=== PATIENT | female | born 1945 | race Hispanic/Latino ===

== ENCOUNTER → 2023-07-08 | Outpatient (CLI) | payer OTHER | END | disposition home or self-care (01) | LOC: RAH 14:16 | PROVIDERS: ATTEND Family Medicine | DX: M16.11 Unilateral primary osteoarthritis, right hip (principal); M25.551 Pain in right hip; M47.816 Spondylosis without myelopathy or radiculopathy, lumbar region | CPT/HCPCS: 72100; 73502 ==

== ENCOUNTER 2023-08-22 13:53 | Emergency (ER) | payer MEDICARE, OTHER ==
[~2023-08-22] VITALS: Ht 157.5 cm; Wt 59.9 kg
[2023-08-22 14:36] VITALS: BP 159/85; PULSE 72; RESP 18
[2023-08-22] MEDS ORDERED: ACETAMINOPHEN 500 MG TABLET ONE (17:45)
[2023-08-22] MEDS ORDERED: MELO5CAP3 PO (17:49)
[2023-08-22] MEDS ORDERED: MELOXICAM 7.5 MG TABLET PO SCH (18:00)
== END 2023-08-22 18:44 | disposition home or self-care (01) ==
LOC: EDH 13:53
DX: M54.31 Sciatica, right side (principal); E78.00 Pure hypercholesterolemia, unspecified; I10 Essential (primary) hypertension

== ENCOUNTER 2023-10-03 05:46 | Day surgery (SDC) | payer MEDICARE ==
[2023-10-03] VITALS (11 sets, daily range): BP systolic 100–162; BP diastolic 53–80; PULSE 54–70; RESP 14–18
[~2023-10-03] VITALS: Ht 157.5 cm; Wt 59.0 kg
[~2023-10-03 05:46] MED LIST: ASCO250T22 PO; CHOL200079 PO; CYAN500T77 PO; FLUT16H NS; LOSA100T59 PO; MELO-108 PO; NITR100C PO; ROSU40TA21 PO
[2023-10-03] MEDS: 0.9%NACL 1000ML 1,000 ML IV ONE (06:48)
[2023-10-03] MEDS ORDERED: PROPOFOL 10 MG/ML 20ML VIAL IV ONE (07:53)
== END 2023-10-03 09:25 | disposition home or self-care (01) ==
LOC: ENDO 05:46 → DAH 05:46 → ENDO 09:25
PROVIDERS: ATTEND Internal Medicine Gastroenterology
DX: R68.81 Early satiety (principal); K44.9 Diaphragmatic hernia without obstruction or gangrene; K29.50 Unspecified chronic gastritis without bleeding; R12 Heartburn; R14.0 Abdominal distension (gaseous); K57.30 Diverticulosis of large intestine without perforation or abscess without bleeding; K59.00 Constipation, unspecified; K64.0 First degree hemorrhoids; I10 Essential (primary) hypertension; M19.90 Unspecified osteoarthritis, unspecified site; E78.00 Pure hypercholesterolemia, unspecified; M81.0 Age-related osteoporosis without current pathological fracture; Z86.73 Personal history of transient ischemic attack (TIA), and cerebral infarction without residual deficits; Z90.49 Acquired absence of other specified parts of digestive tract; Z90.710 Acquired absence of both cervix and uterus; Z86.010 Personal history of colon polyps; Z79.899 Other long term (current) drug therapy
CPT/HCPCS: 43239; J7030 ×2; J2704; A4620; A4215 ×2; A4223; A7002; A4222; A4221; A4663; A4606; J3490